=== PATIENT | female | born 2000 | race Caucasian/White ===

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

== ENCOUNTER 2023-08-15 00:02 | Inpatient (IN) | payer BC ==
[~2023-08-15 00:02] MED LIST: Carboprost Tromethamine 250 MCG/1 ML Amp IM PRN; Methylergonovine 0.2 MG/1 ML Amp IM PRN; Naloxone 2 MG/2 ML Syringe IVPUSH PRN; Sodium Chloride 0.9% 10 ML Syringe FLUSH PRN; Tranexamic Acid 1,000 MG in Sodium Chloride 0.9% 100 ML IV PRN
[2023-08-15 00:41] LABS: HEMATOCRIT 37.2 % (37.0-47.0); HEMOGLOBIN 12.6 g/dL (12.0-16.0); MEAN CORPUSCULAR HEMOGLOBIN 32.2 pg (27.0-34.0); MEAN CORPUSCULAR HGB CONC 33.9 g/dL (33.0-35.0); MEAN CORPUSCULAR VOLUME 95.1 fL (80-100); RED BLOOD CELL COUNT 3.91 10^6/uL (4.2-5.4); WHITE BLOOD CELL COUNT,WBC 10.8 10^3/uL (5.0-10.0)
[2023-08-15] MEDS: Misoprostol 50 MCG (1/2 of 100 MCG) Tab VAG SCH (00:47)
[2023-08-15] MEDS: Lactated Ringers 1,000 ML IV ONE (00:51)
[2023-08-15] MEDS: Misoprostol 25 MCG (1/4 of 100 MCG) Tab VAG PRN (04:47)
[2023-08-15] MEDS: Lactated Ringers 1,000 ML IV SCH (12:05)
[2023-08-15] MEDS: fentaNYL 100 MCG/2 ML SDV IVPUSH PRN (12:30)
[2023-08-15] MEDS: Oxytocin/Normal Saline 30 UNIT/500 ML BAG IV SCH (13:32)
[2023-08-15] MEDS: Ondansetron 4 MG/2 ML SDV IVPUSH PRN (15:58)
[2023-08-15] MEDS: Misoprostol 400 MCG (4 X 100 MCG TAB) RECTAL PRN (16:35)
[2023-08-15] MEDS ORDERED: Simethicone 80 MG Tab.Chew PO PRN (16:55)
[2023-08-15] MEDS ORDERED: Oxytocin 10 Units/1 ML SDV IM PRN (16:55)
[2023-08-15] MEDS ORDERED: Hydrocortisone 2.5% Crm 30 GM Tube TOP PRN (16:55)
[2023-08-15] MEDS ORDERED: Sodium Chloride 0.9% 10 ML Syringe FLUSH PRN (16:55)
[2023-08-15] MEDS: Lidocaine 1% 30 ML SDV INJECT ONE (17:05)
[2023-08-15] MEDS: Benzocaine/Menthol 20%-0.5% Spray 78 GM Cannister TOP PRN (17:21)
[2023-08-15] MEDS: Docusate Sodium 100 MG Cap PO PRN (17:21)
[2023-08-15] MEDS: Ibuprofen 800 MG Tab PO PRN (17:21)
[2023-08-15] MEDS: Lidocaine 1% 30 ML SDV ONE (17:33)
[2023-08-16 06:45] LABS: HEMATOCRIT 34.5 % (37.0-47.0); HEMOGLOBIN 11.6 g/dL (12.0-16.0); MEAN CORPUSCULAR HEMOGLOBIN 32.4 pg (27.0-34.0); MEAN CORPUSCULAR HGB CONC 33.6 g/dL (33.0-35.0); MEAN CORPUSCULAR VOLUME 96.4 fL (80-100); RED BLOOD CELL COUNT 3.58 10^6/uL (4.2-5.4); WHITE BLOOD CELL COUNT,WBC 15.8 10^3/uL (5.0-10.0)
[2023-08-16] MEDS: Prenatal Multivitamin with Calcium/Folic Acid/Iron Tab PO SCH (11:13)
[2023-08-16] MEDS: Acetaminophen 325 MG Tab PO PRN (18:14)
[2023-08-16] MEDS ORDERED: fentaNYL 100 MCG/2 ML SDV ONE (18:55)
[2023-08-16] MEDS ORDERED: Bupivacaine 0.25% 10 ML SDV ONE (18:55)
== END 2023-08-17 08:52 | disposition home or self-care (01) | DRG 560 ==
LOC: DL.OBCHECK 00:02 → UNDOADMOB 00:08 → DL.OB 00:08 → UNDOADMOB 16:25 → DL.OB 16:41 → OBSVTOIN 16:41 → INTOOBSV 16:41 → DL.OB 08-17 01:51
PROVIDERS: ADMIT Family Medicine; ATTEND Family Medicine
PROC: 10E0XZZ Delivery of Products of Conception, External Approach (ICD-10-PCS; principal; 2023-08-15)
PROC: 0HQ9XZZ Repair Perineum Skin, External Approach (ICD-10-PCS; 2023-08-15)
PROC: 3E0P7VZ Introduction of Hormone into Female Reproductive, Via Natural or Artificial Opening (ICD-10-PCS; 2023-08-15)
PROC: 10907ZC Drainage of Amniotic Fluid, Therapeutic from Products of Conception, Via Natural or Artificial Opening (ICD-10-PCS; 2023-08-15)
DX: O99.62 Diseases of the digestive system complicating childbirth (principal); K21.9 Gastro-esophageal reflux disease without esophagitis; O70.0 First degree perineal laceration during delivery; Z37.0 Single live birth; O99.02 Anemia complicating childbirth; Z3A.39 39 weeks gestation of pregnancy; O62.2 Other uterine inertia; O69.81X0 Labor and delivery complicated by cord around neck, without compression, not applicable or unspecified
CPT/HCPCS: 36415; 59409; 85027; A9270-GY; J2405; J2590; J3010; J3490; J7120

== ENCOUNTER 2023-09-15 01:58 | Emergency (ER) | payer BC ==
[2023-09-15] MEDS: Sodium Chloride 0.9% 10 ML Syringe FLUSH PRN (03:17)
[2023-09-15] MEDS: Lactated Ringers 1,000 ML IV ONE (03:18)
[2023-09-15 03:23] LABS: BASOPHILS PERCENT AUTO 0.1 % (0.0-1.0); HEMATOCRIT 39.1 % (37.0-47.0); HEMOGLOBIN 12.9 g/dL (12.0-16.0); LYMPHOCYTES PERCENT AUTO 20.6 % (20.5-50.1); MEAN CORPUSCULAR HEMOGLOBIN 30.9 pg (27.0-34.0); MEAN CORPUSCULAR VOLUME 93.8 fL (80-100); MONOCYTES PERCENT AUTO 5.7 % (2-8); NEUTROPHILS PERCENT AUTO 70.6 % (42.2-75.2); PLATELET COUNT,PLT 224 10^3/uL (150-450); RED BLOOD CELL COUNT 4.17 10^6/uL (4.2-5.4); WHITE BLOOD CELL COUNT,WBC 8.5 10^3/uL (5.0-10.0)
[2023-09-15 03:25] LABS: APPEARANCE,URINE CLEAR (CLEAR); BILIRUBIN,URINE NEGATIVE (NEGATIVE); COLOR,URINE YELLOW (YELLOW); GLUCOSE,URINE NEGATIVE (NEGATIVE); KETONES,URINE NEGATIVE (NEGATIVE); LEUKOCYTE ESTERASE,URINE TRACE (NEGATIVE); NITRITE,URINE NEGATIVE (NEGATIVE); OCCULT BLOOD,URINE NEGATIVE (NEGATIVE); PROTEIN,URINE NEGATIVE (NEGATIVE); UROBILINOGEN,URINE 0.2 mg/dL (0.2-1.0)
[2023-09-15 03:52] LABS: BACTERIA,URINE MODERATE /HPF (0-FEW/HPF); EPITHELIAL CELLS,URINE MODERATE /HPF (NOT SEEN); RBC,URINE 0-5 /HPF (0-5)
[2023-09-15 04:22] LABS: ANION GAP 10.8 mEq/L (7-13); BILIRUBIN TOTAL 0.3 mg/dL (0.2-1.0); BUN/CREATININE RATIO 18.3 (No establ ref range); CALCIUM 8.4 mg/dL (8.5-10.1); CREATININE 0.71 mg/dL (0.55-1.02); EST CRCL DRUG DOSING (CG) 112.78 mL/min; MAGNESIUM 1.6 mg/dL (1.8-2.4); POTASSIUM,K 3.8 mmol/L (3.5-5.1); PROTEIN TOTAL,TP 6.4 g/dL (6.4-8.2)
[2023-09-15 04:23] LABS: A/G RATIO 0.88
== END 2023-09-15 06:13 | disposition home or self-care (01) ==
LOC: DL.ED 01:58
DX: N20.0 Calculus of kidney (principal); Z79.82 Long term (current) use of aspirin; Z79.899 Other long term (current) drug therapy
CPT/HCPCS: 36415; 74176; 80053; 81001; 81025; 83690; 83735; 85025; 87086; 96360; 99284; J7120; J3490

== ENCOUNTER 2023-09-29 16:47 | Emergency (ER) | payer BC ==
[2023-09-29 17:34] LABS: BASOPHILS PERCENT AUTO 0.2 % (0.0-1.0); EOSINOPHILS PERCENT AUTO 0.8 % (1.0-3.0); HEMATOCRIT 41.3 % (37.0-47.0); HEMOGLOBIN 13.7 g/dL (12.0-16.0); LYMPHOCYTES PERCENT AUTO 18.1 % (20.5-50.1); MEAN CORPUSCULAR HEMOGLOBIN 30.5 pg (27.0-34.0); MEAN CORPUSCULAR HGB CONC 33.2 g/dL (33.0-35.0); MONOCYTES PERCENT AUTO 5.1 % (2-8); NEUTROPHILS PERCENT AUTO 75.8 % (42.2-75.2); PLATELET COUNT,PLT 265 10^3/uL (150-450); RED BLOOD CELL COUNT 4.49 10^6/uL (4.2-5.4); WHITE BLOOD CELL COUNT,WBC 9.9 10^3/uL (5.0-10.0)
[2023-09-29] MEDS: Ketorolac 30 MG/ML SDV IVPUSH ONE (17:34)
[2023-09-29] MEDS: Ondansetron 4 MG/2 ML SDV IVPUSH ONE (17:35)
[2023-09-29] MEDS: HYDROmorphone 0.5 MG/0.5 ML Syringe IVPUSH ONE (17:35)
[2023-09-29] MEDS: Sodium Chloride 0.9% 10 ML Syringe FLUSH PRN (17:39)
[2023-09-29 17:59] LABS: ALANINE AMINOTRANSFERASE,ALT 17 U/L (14-59); ALBUMIN 3.5 g/dL (3.4-5.0); ALKALINE PHOSPHATASE 90 U/L (46-116); ANION GAP 14.4 mEq/L (7-13); ASPARTATE AMNIOTRANSFERASE,AST 16 U/L (15-37); BILIRUBIN TOTAL 0.3 mg/dL (0.2-1.0); BLOOD UREA NITROGEN,BUN 14 mg/dL (7-18); BUN/CREATININE RATIO 18.7 (No establ ref range); CALCIUM 8.9 mg/dL (8.5-10.1); CARBON DIOXIDE,CO2 27 mmol/L (21-32); CHLORIDE,CL 106 mmol/L (98-107); CREATININE 0.75 mg/dL (0.55-1.02); GLUCOSE RANDOM 97 mg/dL (70-99); LIPASE 15 U/L (16-77); POTASSIUM,K 4.4 mmol/L (3.5-5.1); PROTEIN TOTAL,TP 7.1 g/dL (6.4-8.2); SODIUM,NA 143 mmol/L (136-145)
[2023-09-29 18:02] LABS: ESTIMATED GFR 116 mL/min (>=60)
== END 2023-09-29 18:57 | disposition home or self-care (01) ==
LOC: DL.ED 16:47
DX: K80.20 Calculus of gallbladder without cholecystitis without obstruction (principal); Z79.02 Long term (current) use of antithrombotics/antiplatelets; Z79.899 Other long term (current) drug therapy; Z86.16 Personal history of COVID-19
CPT/HCPCS: 36415; 76705; 80053; 83690; 85025; 96374; 96375; 99284; 99284-25; J1170; J1885; J2405; J3490

== ENCOUNTER 2023-09-30 03:46 | Emergency (ER) | payer BC ==
[2023-09-30 04:30] LABS: BASOPHILS PERCENT AUTO 0.1 % (0.0-1.0); EOSINOPHILS PERCENT AUTO 1.2 % (1.0-3.0); HEMATOCRIT 40.3 % (37.0-47.0); HEMOGLOBIN 13.3 g/dL (12.0-16.0); MEAN CORPUSCULAR HEMOGLOBIN 30.6 pg (27.0-34.0); MEAN CORPUSCULAR VOLUME 92.9 fL (80-100); MONOCYTES PERCENT AUTO 6.3 % (2-8); NEUTROPHILS PERCENT AUTO 68.4 % (42.2-75.2); PLATELET COUNT,PLT 264 10^3/uL (150-450); RED BLOOD CELL COUNT 4.34 10^6/uL (4.2-5.4); WHITE BLOOD CELL COUNT,WBC 8.8 10^3/uL (5.0-10.0)
[2023-09-30 04:34] LABS: APPEARANCE,URINE SLIGHTLY CLOUDY (CLEAR); BILIRUBIN,URINE NEGATIVE (NEGATIVE); COLOR,URINE YELLOW (YELLOW); GLUCOSE,URINE NEGATIVE (NEGATIVE); KETONES,URINE TRACE (NEGATIVE); LEUKOCYTE ESTERASE,URINE LARGE (NEGATIVE); NITRITE,URINE NEGATIVE (NEGATIVE); OCCULT BLOOD,URINE TRACE-INTACT (NEGATIVE); PROTEIN,URINE NEGATIVE (NEGATIVE); UROBILINOGEN,URINE 0.2 mg/dL (0.2-1.0)
[2023-09-30 04:46] LABS: BACTERIA,URINE MANY /HPF (0-FEW/HPF); EPITHELIAL CELLS,URINE MODERATE /HPF (NOT SEEN); WBC,URINE 40-50 /HPF (0-5/HPF)
[2023-09-30] MEDS: Take Home: Ciprofloxacin HCl 500 MG, 6 Tab Pack PO ONE (04:53)
[2023-09-30 04:54] LABS: ALBUMIN 3.1 g/dL (3.4-5.0); ANION GAP 10.7 mEq/L (7-13); BILIRUBIN TOTAL 0.4 mg/dL (0.2-1.0); BUN/CREATININE RATIO 15.5 (No establ ref range); CALCIUM 8.4 mg/dL (8.5-10.1); CREATININE 0.71 mg/dL (0.55-1.02); EST CRCL DRUG DOSING (CG) 112.78 mL/min; POTASSIUM,K 3.7 mmol/L (3.5-5.1); PROTEIN TOTAL,TP 6.7 g/dL (6.4-8.2)
[2023-09-30 05:02] LABS: A/G RATIO 0.86
== END 2023-09-30 04:58 | disposition home or self-care (01) ==
LOC: DL.ED 03:46
DX: N30.01 Acute cystitis with hematuria (principal); E66.9 Obesity, unspecified; Z68.33 Body mass index [BMI] 33.0-33.9, adult; Z79.82 Long term (current) use of aspirin; Z79.899 Other long term (current) drug therapy
CPT/HCPCS: 36415; 80053; 81001; 85025; 87086; 99284; A9270